=== PATIENT | female | born 1980 | race Caucasian/White ===

== ENCOUNTER 2016-12-30 17:45 | Emergency (ER) | payer MEDICARE, MEDICAID ==
[~2016-12-30] VITALS: Ht 154.9 cm; Wt 77.3 kg
[~2016-12-30 17:45] MED LIST: AMBIEN 10MG10 MG PO; CELEXA40 MG PO; K-DUR 2020 MEQ PO; NO HOME MEDICATIONS; NORCO 325 MG-101 TAB PO; PHENERGAN 25 TA25 MG PO; PRENATAL VITAMI1 TA5 PO; ROBAXIN 75750 MG/TAB PO; XANAX2 MG PO; ZOFRAN 4MG T4 MG/TAB PO
[2016-12-30 17:49] VITALS: BP 110/75; PULSE 70; TEMP 97.8
[2016-12-30] MEDS ORDERED: PYRIDIUM 100MG100 MG PO (18:24)
[2016-12-30] MEDS ORDERED: EXCEDRIN1 TAB PO (18:25)
[2016-12-30] MEDS ORDERED: CRANBERRY450 MG PO (18:27)
[2016-12-30 18:37] LABS: PH 6 (5-8); URINE APPEARANCE Hazy; URINE BACTERIA Rare /hpf; URINE BILIRUBIN Negative (NEGATIVE); URINE BLOOD 1+ (NEGATIVE); URINE COLOR Amber; URINE GLUCOSE Negative (NEGATIVE); URINE KETONE Negative (NEGATIVE); URINE RBC 0-2 /hpf; URINE UROBILINOGEN >=4.0 mg/dL (NEGATIVE)
[2016-12-30 18:39] LABS: URINE WBC >50 /hpf
[2016-12-30] MEDS ORDERED: CEFTIN 250250 MG/TAB PO (19:00)
== END 2016-12-30 19:07 | disposition home or self-care (01) ==
LOC: COL.ER 17:45
PROVIDERS: Nurse Practitioner
DX: N39.0 Urinary tract infection, site not specified (principal)